=== PATIENT | female | born 1995 | race Caucasian/White ===

== ENCOUNTER 2024-02-13 20:14 | Emergency (ER) | payer OTHER, SELFPAY ==
[2024-02-13 20:16] VITALS: BP 139/78
[2024-02-13 20:40] VITALS: BP 127/82; BMI 21.0
--- NOTE | 2024-02-13 20:49 | ED.GENMED ---
History of Present Illness
General
Chief Complaint: Chest Pain
Source: patient
Time Seen by Provider: 02/13/24 20:31
History of Present Illness
History of Present Illness:
28-year-old female presents emergent complaining of left-sided chest pain. Patient has been experiencing the pain for the past 2 days. She recalls it first developing shortly after a yoga class. The pain was mild when it first started but seem to
get worse throughout the course the day today. It is worse with deep breath and movement. Patient states it is particularly bad when she takes a deep breath. No recent periods of immobilization or long travel. No history of PE. Patient denies
any chest trauma. No fever or chills.
Past History
Past History
ED Past Medical History: None
ED Past Surgical History: Other ([place] teeth removal, left arm surgery)
Social History
Tobacco: Non-smoker
Alcohol: None
Drug: IVDA
Personal: Single
Living: with family
Phy Exam
Physical Exam
Physical Exam:
General: Awake, Alert, Oriented X3. No acute distress.
Vitals: unremarkable
Head: Atraumatic
Eyes: Pupils equal, EOMI
Throat: Airway intact, no exudates
Neck: Trachea midline
Lungs: Clear and equal b/l
Heart: Regular rate, no murmurs
Abd: Soft, Nontender, No pulsatile mass
Neuro: Nonfocal
Skin: Warm, dry, no rash
Extremities: pulses equal b/l, no edema
Scores
Heart Score for Chest Pain Patients
STEMI patient?: Not applicable
Course
Orders/Labs/Results
Orders:
Orders
02/13/24 20:15
EKG [Electrocardiogram (*1)] Urgent
Reason for Study: Chest Pain
02/13/24 20:16
EKG- Treatment ONCE
02/13/24 20:47
Ketorolac [Toradol] 15 mg IV NOW STA
02/13/24 20:48
Test Result ONCE
02/13/24 21:01
Basic Metabolic Panel Urgent
Complete Blood Count/With Diff Urgent
D-Dimer Urgent
HCG, Serum Qualitative Screen Urgent
02/13/24 21:01
02/13/24 21:01
Vital Signs
Initial and Last Documented VS:
Initial Vital Signs
Temp Pulse Resp BP Pulse Ox
98 F 74 16 139/78 99
02/13/24 20:16 02/13/24 20:16 02/13/24 20:16 02/13/24 20:16 02/13/24 20:16
Last Documented Vital Signs
Temp Pulse Resp BP Pulse Ox
98 F 55 17 98/63 97
02/13/24 20:16 02/13/24 23:00 02/13/24 23:00 02/13/24 23:00 02/13/24 23:00
MDM/Problems Addressed
Differential Diagnosis Includes:
Spontaneous pneumothorax, PE, costochondritis, muscle strain
MDM/Problems Addressed:
Patient presents with left-sided chest pain. She is hemodynamically stable. EKG is essentially normal. D-dimer is normal. My suspicion for PE was low and so D-dimer basically excludes PE. Patient's physical exam is consistent with chest wall
source of pain. Patient was sent from an urgent care she does have the discharge information which shows there is a radiology report of a chest x-ray obtained today that was normal. Suspect costochondritis from her yoga exercises. Recommend
NSAIDs, warm compresses, family practice follow-up
*Pulse Oximetry
Patient hypoxic: no
*Critical Care Note
Total Time (30-74mins, 75-104mins- exclusive of procedures): Not Applicable
ED Attending Note
-
Portions of this chart may have been created with voice recognition software.� Occasional wrong word or��sound alike� substitutions may have occurred due to the inherent limitations of voice recognition software.
Discharge Plan
Departure
Patient Disposition: Home (Routine Discharge)
Date of Disposition: 02/13/24
Time of Disposition: 22:58
Patient with high blood pressure during this ER visit?: No
Condition: Good
Discharge Problem:
Chest pain, Acute costochondritis
Instructions: Costochondritis (DC)
Prescriptions:
New
ibuprofen 600 mg tablet
600 mg PO Q6H PRN (Reason: Pain) Qty: 20 0RF
cyclobenzaprine 10 mg tablet
10 mg PO TIDPRN PRN (Reason: muscle spasm) Qty: 13 0RF
No Action
Suboxone
Referrals:
Jose Paulino MD [Family Provider] -
Interventions
Interventions:
*Risk Screen - Suicide Last Done: 02/13/24 20:16
*General Assessment Last Done: 02/13/24 20:40
*Neglect/Abuse Screening Last Done: 02/13/24 20:16
ED- Fall Risk Assessment Last Done: 02/13/24 20:36
*ED COVID-19 Vaccine History Last Done: 02/13/24 20:40
*Nursing Disposition Last Done: 02/13/24 23:12
ED- Cardiac Assessment Last Done: 02/13/24 20:36
Discharge Date and Time
Discharge Date/Time: 02/13/24 23:16
Print Language: [place]
[2024-02-13 21:00] VITALS: BP 114/79
[2024-02-13] MEDS: TORADOL 15 MG IV (21:05)
[2024-02-13 21:11] LABS: % Basophils 0.6 % (0-2); % Eosinophils 2.6 % (0-6); % Immature Granulocytes 0.3 % (0-0.5); % Lymphocytes 38.9 % (20.5-51.1); % Monocytes 6.9 % (1.7-9.3); % Neutrophils 50.7 % (42.2-75.2); Absolute Eosinophils 0.2 10^3/uL (0-0.7); Absolute Lymphocytes 2.7 10^3/uL (1.2-3.4); Absolute Monocytes 0.5 10^3/uL (0.1-0.6); Absolute Neutrophils 3.6 10^3/uL (1.4-6.5); Hematocrit 38.5 % (37.0-47.0); Hemoglobin 13.4 g/dL (12.0-16.0); Mean Corp Hgb Conc. 34.8 g/dL (33.0-37.0); Mean Corpuscular Hgb 30.3 pg (27.0-31.0); Mean Corpuscular Volume 87.1 fL (81.0-99.0); Mean Platelet Volume 8.2 fL (7.4-10.4); Nucleated Red Blood Cells % 0 %; Platelet Count 215 10^3/uL (130-400); Red Blood Cell Count 4.42 10^6/uL (4.20-5.40); Red Cell Dist. Width 11.9 % (11.5-14.5)
[2024-02-13 21:25] LABS: HCG, Serum Qualitative Screen Negative
[2024-02-13 21:28] LABS: D-Dimer < 0.27 ug/mlFEU (0.00-0.50)
[2024-02-13 21:29] LABS: Blood Urea Nitrogen 13 mg/dl (7-17); Calcium 9.3 mg/dl (8.4-10.2); Carbon Dioxide 28 mmol/L (22-30); Chloride 101 mmol/L (98-107); Estimated Creatinine Clearance 121 ml/min; Glucose 97 mg/dl (70-99); Potassium 4.2 mmol/L (3.5-5.1); Sodium 142 mmol/L (135-145); eGFR > 60.00
[2024-02-13 22:00] VITALS: BP 100/54
[2024-02-13 23:00] VITALS: BP 98/63
== END 2024-02-13 23:16 | disposition home or self-care (01) ==
LOC: EMR 20:14
PROVIDERS: EMERGENCY PHYSICIAN Emergency Medicine; FAMILY PHYSICIAN Internal Medicine
DX: M94.0 Chondrocostal junction syndrome [Tietze] (principal)
CPT/HCPCS: 96374; 99284; 80048; 84703; 85025; 85379; 93005